=== PATIENT | female | born 1965 | race Caucasian/White ===

== ENCOUNTER → 2017-11-07 | Emergency (ER) | payer MEDICAID ==
[~2017-11-07] VITALS: Ht 162.6 cm; Wt 79.8 kg
[~2017-11-07] MED LIST: ALLO100T PO; AMIO100T4 PO; ASCO10007 PO; ASPI-1265 PO; ATOR40TA PO; BENZ-16 PO; BUDE10.2 INH; CARV-50 PO; CETI10CA PO; CHOL200012 PO; COMIN IH; COU5T PO; DIPH-423 PO; DOCU100C23 PO; FENO48TA15 PO; FERR325T28 PO; FURO80TA87 PO; GUAI10SY2 PO; HYDR-4070 PO; HYDR-565 PO; IPRA3AMP9 NEB; LEVO137T2 PO; MONT10TA21 PO; POTA8TAB3 PO; PRED10TA23 PO; PRED20TA PO; PRED5TAB PO; SPIR25TA3 PO; TADA20TA31 PO; benzonatate 100mg capsule PO ONE; guaiFENesin/codeine phos 10ml UD oral syrup PO ONE; ipratropium/albuterol 3ml nebule NEB ONE; predniSONE 20 mg tablet PO ONE
[2017-11-07 12:50] VITALS: BP 113/70
== END | disposition home or self-care (01) ==
LOC: ER 09:47
DX: J06.9 Acute upper respiratory infection, unspecified (principal); J98.01 Acute bronchospasm; I27.20 Pulmonary hypertension, unspecified; N18.9 Chronic kidney disease, unspecified; I50.9 Heart failure, unspecified; E11.9 Type 2 diabetes mellitus without complications; J44.9 Chronic obstructive pulmonary disease, unspecified; F12.10 Cannabis abuse, uncomplicated; Z56.0 Unemployment, unspecified; Z95.0 Presence of cardiac pacemaker; Z90.710 Acquired absence of both cervix and uterus; Z87.891 Personal history of nicotine dependence; Z88.8 Allergy status to other drugs, medicaments and biological substances; Z79.82 Long term (current) use of aspirin; Z79.01 Long term (current) use of anticoagulants; Z79.899 Other long term (current) drug therapy
CPT/HCPCS: 71046; 94640; 94760; 99284; J7512

== ENCOUNTER 2019-06-03 18:41 | Inpatient (IN) | payer MEDICARE, MEDICAID ==
[~2019-06-03] VITALS: Ht 162.6 cm; Wt 83.3 kg
[~2019-06-03 18:41] MED LIST changes: -BENZ-16 PO; +DOCU-274 PO; -DOCU100C23 PO; -GUAI10SY2 PO; +HYDR-4353 PO; -HYDR-565 PO; -PRED20TA PO; -SPIR25TA3 PO; +SPIR25TA5 PO; -benzonatate 100mg capsule PO ONE; -guaiFENesin/codeine phos 10ml UD oral syrup PO ONE; -ipratropium/albuterol 3ml nebule NEB ONE; -predniSONE 20 mg tablet PO ONE
[2019-06-03 20:21] LABS: BASOPHILS # (AUTO) 0.1 X10'3 (0-0.2); BASOPHILS % (AUTO) 0.7 % (0-1); EOSINOPHILS # (AUTO) 0.2 X10'3 (0-0.9); EOSINOPHILS % (AUTO) 1.5 % (0-6); HEMATOCRIT 29.4 % (35.0-45.0); HEMOGLOBIN 9.7 g/dl (12.0-16.0); LYMPHOCYTES # (AUTO) 0.5 X10'3 (1.1-4.8); LYMPHOCYTES % (AUTO) 4.5 % (21-51); MEAN CORPUSCULAR HEMOGLOBIN 30.2 PG (27.0-31.0); MEAN CORPUSCULAR HGB CONC 32.9 g/dL (33.0-36.5); MEAN CORPUSCULAR VOLUME 91.8 FL (78-98); MONOCYTES # (AUTO) 1.1 X10'3 (0-0.9); MONOCYTES % (AUTO) 9.7 % (2-12); NEUTROPHILS # (AUTO) 9.4 X10'3 (1.8-7.7); NEUTROPHILS % (AUTO) 83.6 % (42-75); PLATELET COUNT 253 X10'3 (140-440); RED CELL DISTRIBUTION WIDTH 17.7 % (11.5-14.5); WHITE BLOOD COUNT 11.3 X10'3 (4.5-11.0)
[2019-06-03 20:32] LABS: PARTIAL THROMBOPLASTIN TIME 34 SECONDS (22-32)
[2019-06-03 20:34] LABS: ALANINE AMINOTRANSFERASE 28 U/L (12-78); ALBUMIN 3.3 G/DL (3.4-5.0); ALBUMIN/GLOBULIN RATIO 0.8 (1.1-1.5); ALKALINE PHOSPHATASE 152 IU/L (46-116); ANION GAP 13 (8-16); ASPARTATE AMINO TRANSFERASE 24 U/L (10-37); BILIRUBIN,TOTAL 0.4 MG/DL (0.1-1.0); BLOOD UREA NITROGEN 62 MG/DL (7-18); CALCIUM 11.1 MG/DL (8.5-10.1); CHLORIDE 102 MMOL/L (99-107); CREATININE 4.44 MG/DL (0.40-0.90); GLUCOSE 107 MG/DL (70-104); POTASSIUM 3.8 MMOL/L (3.5-5.1); SODIUM 142 MMOL/L (135-145); TOTAL CARBON DIOXIDE 27.5 MMOL/L (24-32); TOTAL PROTEIN 7.3 G/DL (6.4-8.2); eGFR 10 ML/MIN
[2019-06-03] MEDS ORDERED: ISOS30TA9 PO (21:29)
[2019-06-03] MEDS ORDERED: HYDR-4070 PO (21:29)
[2019-06-03] MEDS ORDERED: FEBU40TA PO (21:29)
[2019-06-03] MEDS ORDERED: CARV-50 PO (21:29)
[2019-06-03] MEDS ORDERED: BACL20TA PO (21:29)
[2019-06-03] MEDS ORDERED: BUME2TAB7 PO (21:29)
[2019-06-03] MEDS ORDERED: ondansetron/PF 4mg/2ml inj IV PRN (21:30)
[2019-06-03] MEDS ORDERED: acetaminophen 325mg tablet PO PRN ×2 (21:30)
[2019-06-03] MEDS ORDERED: acetaminophen 650mg rectal suppository RC PRN (21:30)
[2019-06-03] MEDS ORDERED: ISOS30TA6 PO (21:48)
[2019-06-03 21:56] LABS: MAGNESIUM 2.2 MG/DL (1.5-2.4)
[2019-06-03] MEDS ORDERED: INSU100V9 SQ (22:31)
[2019-06-03] MEDS ORDERED: SEVE800T8 PO (22:31)
[2019-06-03] MEDS ORDERED: dextrose 50%-water 50ml dispensing syringe IV PRN ×2 (22:45)
[2019-06-03] MEDS ORDERED: dextrose ORAL solution 15 GM/59 ML bottle PO PRN ×2 (22:45)
[2019-06-03] MEDS ORDERED: glucagon, human recombinant 1mg kit SUBCUT PRN (22:45)
--- NOTE | 2019-06-03 23:12 | NUR ---
Pt remains stable. No complaints of CP. No shocks delivered from AICD. Pt awaiting IPA.
--- NOTE | 2019-06-03 23:40 | NUR ---
Received report form [facility] from ED. Pt presented with arrhythmia, ESRD on HD. No shocks delivered from AICD. Pt is alert and oriented X4, denies CP, SOB, n/v, dizziness, and rated pain 0/10. Her VS upon arrival at PCU were as follow: Temp: 97.9, BP: 100/63, HR: 76, SPO2: 95% on room air. Pt received HD 06/02 and the next one will be 06/04. She is also on Lantus AM at home. Troponin at 1952 was <0.08>, at 23:35 <0.11> and the next will be done at 06:54.
[2019-06-04 02:00] VITALS: BP 94/47
[2019-06-04] MEDS: ipratropium/albuterol 3ml nebule IH SCH ×4 (03:52→20:19)
--- NOTE | 2019-06-04 05:18 | NUR ---
DART: 2 RN Skin Assessment Admission Assessment [facility] Advocate Screening Malnutrition Risk Screening for Nursing
[2019-06-04 05:44] LABS: PARTIAL THROMBOPLASTIN TIME 33 SECONDS (22-32)
[2019-06-04 05:49] LABS: BASOPHILS # (AUTO) 0.1 X10'3 (0-0.2); BASOPHILS % (AUTO) 0.8 % (0-1); EOSINOPHILS # (AUTO) 0.2 X10'3 (0-0.9); EOSINOPHILS % (AUTO) 1.8 % (0-6); HEMATOCRIT 26.6 % (35.0-45.0); HEMOGLOBIN 9.1 g/dl (12.0-16.0); LYMPHOCYTES # (AUTO) 0.5 X10'3 (1.1-4.8); LYMPHOCYTES % (AUTO) 5.6 % (21-51); MEAN CORPUSCULAR HEMOGLOBIN 31.2 PG (27.0-31.0); MEAN CORPUSCULAR HGB CONC 34.1 g/dL (33.0-36.5); MEAN CORPUSCULAR VOLUME 91.4 FL (78-98); MEAN PLATELET VOLUME 8.2 FL (7.4-10.4); MONOCYTES % (AUTO) 10.8 % (2-12); NEUTROPHILS # (AUTO) 7.4 X10'3 (1.8-7.7); PLATELET COUNT 193 X10'3 (140-440); RED BLOOD COUNT 2.92 X10'6 (4.20-5.60); RED CELL DISTRIBUTION WIDTH 17.4 % (11.5-14.5); WHITE BLOOD COUNT 9.1 X10'3 (4.5-11.0)
[2019-06-04 06:00] VITALS: BP 93/51
[2019-06-04 06:01] LABS: ALANINE AMINOTRANSFERASE 25 U/L (12-78); ALBUMIN 3.1 G/DL (3.4-5.0); ALBUMIN/GLOBULIN RATIO 0.8 (1.1-1.5); ALKALINE PHOSPHATASE 143 IU/L (46-116); ANION GAP 11 (8-16); ASPARTATE AMINO TRANSFERASE 20 U/L (10-37); BILIRUBIN,TOTAL 0.5 MG/DL (0.1-1.0); BLOOD UREA NITROGEN 73 MG/DL (7-18); CALCIUM 10.2 MG/DL (8.5-10.1); CHLORIDE 105 MMOL/L (99-107); CREATININE 4.55 MG/DL (0.40-0.90); GLUCOSE 96 MG/DL (70-104); MAGNESIUM 2.1 MG/DL (1.5-2.4); PHOSPHORUS 3.8 MG/DL (2.3-4.5); POTASSIUM 3.6 MMOL/L (3.5-5.1); SODIUM 144 MMOL/L (135-145); TOTAL PROTEIN 6.8 G/DL (6.4-8.2); eGFR 10 ML/MIN
--- NOTE | 2019-06-04 06:40 | NUR ---
Problems reprioritized. Patient report given, questions answered & plan of care reviewed with BERTA Ramírez. Pt stable at shift change. Per Dr's note pt may need amioradone if she goes into A-Fib RVR, or V-Tach.
--- NOTE | 2019-06-04 06:43 | NUR ---
Patient in room PCU 3012. I have received report from BERTA Serrano and had the opportunity to ask questions and assume patient care.
[2019-06-04] MEDS: levoTHYROXINE 25mcg tablet PO SCH (07:44)
[2019-06-04] MEDS: levoTHYROXINE 112mcg tablet PO SCH (07:44)
[2019-06-04] MEDS: cetirizine 10mg tablet PO SCH (07:45)
[2019-06-04] MEDS: carVEDilol 12.5mg tablet PO SCH ×2 (07:45→21:06)
[2019-06-04] MEDS: isosorbide mononitrate 30mg tab.SR.24H PO SCH (07:45)
[2019-06-04] MEDS: bumetanide 1mg tablet PO SCH ×2 (07:45→21:05)
[2019-06-04] MEDS: aspirin 81mg tab.chew PO SCH (07:45)
[2019-06-04] MEDS: hyDRALAzine 10mg tablet PO SCH ×3 (07:45→21:05)
[2019-06-04] MEDS: sevelamer carbonate 800mg tablet PO SCH ×3 (07:46→17:22)
[2019-06-04] MEDS: febuxostat 40mg tablet PO SCH (07:46)
[2019-06-04] MEDS: insulin glargine (Lantus) pen - multi-dose SQ SCH (07:52)
[2019-06-04] MEDS ORDERED: warfarin 5mg tablet PO SCH (08:00)
[2019-06-04] MEDS ORDERED: amiodarone 100mg tablet PO SCH (08:00)
[2019-06-04] MEDS: budesonide 0.5mg/2ml UD nebule IH SCH ×2 (08:26→20:19)
[2019-06-04] MEDS ORDERED: epoetin 20,000 units/ml inj IV ONE (09:45)
[2019-06-04] MEDS ORDERED: normal saline 1000ml 250 ML IV PRN (09:45)
[2019-06-04] MEDS ORDERED: heparin 1,000unit/ml 10ml vial 10 ML IV ONE (09:45)
[2019-06-04] MEDS ORDERED: heparin 1,000 units/ml 10ml inj HE ONE ×2 (09:50)
[2019-06-04 11:00] VITALS: BP 95/54
[2019-06-04] MEDS: ibuprofen tablet 400 MG TABLET PO SCH ×2 (14:49→21:17)
[2019-06-04 15:00] VITALS: BP 128/75
[2019-06-04 17:35] LABS: HEMOGLOBIN A1C 6.3 % (4.5-6.2)
--- NOTE | 2019-06-04 18:13 | NUR ---
Problems reprioritized. Patient report given, questions answered & plan of care reviewed with BERTA Gee.
[2019-06-04 19:00] VITALS: BP 88/57
[2019-06-04] MEDS ORDERED: montelukast 10mg tablet PO SCH (21:00)
[2019-06-04] MEDS ORDERED: diphenhydrAMINE 25mg capsule PO SCH (21:00)
[2019-06-04] MEDS ORDERED: atorvastatin 20mg tablet PO SCH (21:00)
[2019-06-04] MEDS ORDERED: warfarin 5mg tablet PO ONE (21:00)
[2019-06-04] MEDS ORDERED: baclofen 10mg tablet PO SCH (21:00)
[2019-06-04] MEDS: amiodarone 100mg tablet PO SCH (21:05)
[2019-06-04 23:00] VITALS: BP 103/56
[2019-06-05 03:00] VITALS: BP 91/45
[2019-06-05] MEDS: ipratropium/albuterol 3ml nebule IH SCH ×2 (03:33→08:02)
[2019-06-05 06:00] VITALS: BP 100/54
--- NOTE | 2019-06-05 06:30 | NUR ---
Patient in room PCU 3012. I have received report from CRISTI HAMPTON and had the opportunity to ask questions and assume patient care.
[2019-06-05 07:19] LABS: BASOPHILS # (AUTO) 0.1 X10'3 (0-0.2); BASOPHILS % (AUTO) 0.7 % (0-1); EOSINOPHILS # (AUTO) 0.1 X10'3 (0-0.9); EOSINOPHILS % (AUTO) 1.6 % (0-6); HEMATOCRIT 27.3 % (35.0-45.0); HEMOGLOBIN 9.2 g/dl (12.0-16.0); LYMPHOCYTES # (AUTO) 0.5 X10'3 (1.1-4.8); LYMPHOCYTES % (AUTO) 5.6 % (21-51); MEAN CORPUSCULAR HEMOGLOBIN 30.3 PG (27.0-31.0); MEAN CORPUSCULAR HGB CONC 33.6 g/dL (33.0-36.5); MEAN PLATELET VOLUME 7.8 FL (7.4-10.4); MONOCYTES # (AUTO) 1.1 X10'3 (0-0.9); MONOCYTES % (AUTO) 12.8 % (2-12); NEUTROPHILS # (AUTO) 6.9 X10'3 (1.8-7.7); NEUTROPHILS % (AUTO) 79.3 % (42-75); PLATELET COUNT 209 X10'3 (140-440); RED BLOOD COUNT 3.03 X10'6 (4.20-5.60); RED CELL DISTRIBUTION WIDTH 17.3 % (11.5-14.5); WHITE BLOOD COUNT 8.7 X10'3 (4.5-11.0)
[2019-06-05 07:28] LABS: PARTIAL THROMBOPLASTIN TIME 36 SECONDS (22-32)
[2019-06-05] MEDS: sevelamer carbonate 800mg tablet PO SCH (07:31)
[2019-06-05] MEDS: bumetanide 1mg tablet PO SCH (07:41)
[2019-06-05] MEDS: levoTHYROXINE 112mcg tablet PO SCH (07:42)
[2019-06-05] MEDS: levoTHYROXINE 25mcg tablet PO SCH (07:42)
[2019-06-05] MEDS: isosorbide mononitrate 30mg tab.SR.24H PO SCH (07:43)
[2019-06-05] MEDS: aspirin 81mg tab.chew PO SCH (07:43)
[2019-06-05] MEDS: carVEDilol 12.5mg tablet PO SCH (07:44)
[2019-06-05] MEDS: cetirizine 10mg tablet PO SCH (07:44)
[2019-06-05] MEDS: amiodarone 100mg tablet PO SCH (07:44)
[2019-06-05] MEDS: febuxostat 40mg tablet PO SCH (07:45)
[2019-06-05] MEDS: hyDRALAzine 10mg tablet PO SCH (07:45)
[2019-06-05] MEDS: insulin glargine (Lantus) pen - multi-dose SQ SCH (07:49)
[2019-06-05] MEDS: budesonide 0.5mg/2ml UD nebule IH SCH (08:02)
[2019-06-05 08:53] LABS: ALANINE AMINOTRANSFERASE 21 U/L (12-78); ALBUMIN/GLOBULIN RATIO 0.8 (1.1-1.5); ALKALINE PHOSPHATASE 134 IU/L (46-116); ANION GAP 9 (8-16); ASPARTATE AMINO TRANSFERASE 21 U/L (10-37); BILIRUBIN,TOTAL 0.7 MG/DL (0.1-1.0); BLOOD UREA NITROGEN 33 MG/DL (7-18); BUN/CREATININE RATIO 11.3 (6.6-38.0); CALCIUM 10.2 MG/DL (8.5-10.1); CHLORIDE 104 MMOL/L (99-107); CREATININE 2.93 MG/DL (0.40-0.90); GLUCOSE 84 MG/DL (70-104); POTASSIUM 3.8 MMOL/L (3.5-5.1); SODIUM 142 MMOL/L (135-145); TOTAL CARBON DIOXIDE 28.6 MMOL/L (24-32); eGFR 17 ML/MIN
[2019-06-05] MEDS ORDERED: AMIO100T PO (08:59)
--- NOTE | 2019-06-05 09:00 | NUR ---
AGREE WITH AM ASSESMENT BY MELISSA HAMPTON.
--- NOTE | 2019-06-05 09:51 | NUR ---
received report from uzair cabral
--- NOTE | 2019-06-05 10:00 | NUR ---
Problems reprioritized. Patient report given, questions answered & plan of care reviewed with JUANA HAMPTON.
--- NOTE | 2019-06-05 11:05 | NUR ---
patient dc with instructions, understanding of instructions, and with all belongings in wheelchair accompanied by to private vehicle to go home. F/
--- NOTE | 2019-06-05 11:06 | NUR ---
patient to follow up with primary care provider
[2019-06-05] MEDS ORDERED: lactulose 20gm/30ml cup PO PRN (21:30)
== END 2019-06-05 11:02 | disposition home or self-care (01) | DRG 308 ==
LOC: ER 18:44 → ED HOLD 22:16 → PCU 3S 23:37
PROVIDERS: ADMIT Internal Medicine Critical Care Medicine; ATTEND Internal Medicine Critical Care Medicine
PROC: 4B02XSZ Measurement of Cardiac Pacemaker, External Approach (ICD-10-PCS; principal; 2019-06-03)
PROC: 5A1D70Z Performance of Urinary Filtration, Intermittent, Less than 6 Hours Per Day (ICD-10-PCS; 2019-06-04)
DX: I48.91 Unspecified atrial fibrillation (principal); N18.6 End stage renal disease; E11.22 Type 2 diabetes mellitus with diabetic chronic kidney disease; I05.0 Rheumatic mitral stenosis; K76.9 Liver disease, unspecified; I25.10 Atherosclerotic heart disease of native coronary artery without angina pectoris; M19.90 Unspecified osteoarthritis, unspecified site; I95.9 Hypotension, unspecified; I50.9 Heart failure, unspecified; J44.9 Chronic obstructive pulmonary disease, unspecified; Z87.891 Personal history of nicotine dependence; Z90.49 Acquired absence of other specified parts of digestive tract; Z90.710 Acquired absence of both cervix and uterus; Z99.2 Dependence on renal dialysis; Z95.1 Presence of aortocoronary bypass graft; I25.2 Old myocardial infarction; Z88.8 Allergy status to other drugs, medicaments and biological substances; Z98.51 Tubal ligation status; Z79.899 Other long term (current) drug therapy; Z79.82 Long term (current) use of aspirin
CPT/HCPCS: 36415; 71045; 80053; 82948; 83036; 83735; 84100; 84484; 85025; 85610; 85730; 87081; 93005; 93306; 94640; 94760; 97116; 97161; 97530; 99285; G0257; G0378; J1644; J1815; J7626; Q0163; Q4081

== ENCOUNTER 2019-09-23 06:38 | Day surgery (SDC) | payer MEDICARE, MEDICAID ==
[~2019-09-23] VITALS: Ht 162.6 cm; Wt 86.3 kg
[~2019-09-23 06:38] MED LIST changes: -ALLO100T PO; +AMIO100T PO; -AMIO100T4 PO; -ASCO10007 PO; +BACL20TA PO; +BUME2TAB7 PO; -CHOL200012 PO; -DOCU-274 PO; +FEBU40TA PO; -FENO48TA15 PO; -FERR325T28 PO; -FURO80TA87 PO; -HYDR-4353 PO; +INSU100V9 SQ; -IPRA3AMP9 NEB; +ISOS30TA6 PO; -POTA8TAB3 PO; -PRED10TA23 PO; -PRED5TAB PO; +SEVE800T8 PO; -SPIR25TA5 PO; -TADA20TA31 PO
[2019-09-23] MEDS ORDERED: albumin 25% 100mL bottle x 1 IV PRN (07:00)
[2019-09-23] MEDS ORDERED: normal saline 1000ml 1,000 ML IV PRN (07:05)
[2019-09-23] MEDS ORDERED: CARV-50 PO (07:18)
[2019-09-23] MEDS ORDERED: CARV6.252 PO (07:20)
[2019-09-23] MEDS ORDERED: AMIO200T61 PO (07:36)
--- NOTE | 2019-09-23 09:28 | NUR ---
ULTRASOUND ONLY, PATIENT HAD INR OF 8, SEAMUS GUPTA WAS NOTIFIED, DID ULTRASOUND ONLY PATIENT WANTED TO KNOW IF THERE WAS FLUID. PATIENT HAD NO FLUID TO DRAIN ANYWAYS. ULTRASOUND ONLY WAS PERFORMED, PROCEDURE CANCELLED DUE TO INR. PATIENT LEFT WITH A FRIEND IN STABLE CONDITION, WALKED OUT TO PRIVATE VEHICLE.
== END 2019-09-23 08:34 | disposition home or self-care (01) ==
LOC: SSTAY O 06:38
PROVIDERS: ATTEND Radiology Diagnostic Radiology
DX: R18.8 Other ascites (principal); Z88.8 Allergy status to other drugs, medicaments and biological substances
CPT/HCPCS: 36415; 76705; 85610